=== PATIENT | female | born 1940 | race Caucasian/White ===

== ENCOUNTER 2017-05-23 11:05 | Inpatient (IN) | payer MEDICARE, OTHER ==
[~2017-05-23] VITALS: Ht 160 cm; Wt 108.0 kg
[2017-05-23 11:35] LABS: BASOPHILS % (AUTO) 0.3 % (0-1); EOSINOPHILS # (AUTO) 0.2 X10'3 (0-0.9); EOSINOPHILS % (AUTO) 2.8 % (0-6); HEMATOCRIT 46.5 % (35.0-45.0); HEMOGLOBIN 15.9 g/dl (12.0-16.0); LYMPHOCYTES # (AUTO) 1.1 X10'3 (1.1-4.8); LYMPHOCYTES % (AUTO) 15.9 % (21-51); MEAN CORPUSCULAR HEMOGLOBIN 29.9 PG (27.0-31.0); MEAN CORPUSCULAR HGB CONC 34.1 % (33.0-36.5); MEAN CORPUSCULAR VOLUME 87.6 FL (78-98); MEAN PLATELET VOLUME 9.4 FL (7.4-10.4); MONOCYTES # (AUTO) 0.7 X10'3 (0-0.9); MONOCYTES % (AUTO) 10.2 % (2-12); NEUTROPHILS # (AUTO) 5.1 X10'3 (1.8-7.7); NEUTROPHILS % (AUTO) 70.8 % (42-75); PLATELET COUNT 207 X10'3 (140-440); RED BLOOD COUNT 5.31 X10'6 (4.20-5.60); RED CELL DISTRIBUTION WIDTH 14.4 % (11.5-14.5); WHITE BLOOD COUNT 7.2 X10'3 (4.5-11.0)
[2017-05-23 11:46] LABS: PARTIAL THROMBOPLASTIN TIME 27 SECONDS (22-32); PROTHROMBIN TIME 10.6 SECONDS (9.0-12.0)
[2017-05-23 11:52] LABS: ALANINE AMINOTRANSFERASE 129 U/L (12-78); ALBUMIN 3.8 G/DL (3.4-5.0); ALKALINE PHOSPHATASE 109 IU/L (46-116); ANION GAP 12 (8-16); ASPARTATE AMINO TRANSFERASE 64 U/L (10-37); BILIRUBIN,TOTAL 0.6 MG/DL (0.1-1.0); BLOOD UREA NITROGEN 20 MG/DL (7-18); BUN/CREATININE RATIO 23.8 (6.6-38.0); CALCIUM 9.2 MG/DL (8.5-10.1); CHLORIDE 101 MMOL/L (99-107); CREATININE 0.84 MG/DL (0.40-0.90); GLUCOSE 122 MG/DL (70-104); POTASSIUM 4.4 MMOL/L (3.5-5.1); SODIUM 136 MMOL/L (135-145); TOTAL CARBON DIOXIDE 23.3 MMOL/L (24-32); TOTAL PROTEIN 7.7 G/DL (6.4-8.2); eGFR 66 ML/MIN
[2017-05-23] MEDS: dextrose 5%-1/2 normal saline 1,000 ML IV SCH ×2 (13:09→23:56)
[2017-05-23] MEDS ORDERED: potassium Cl 20 mEq SR tablet PO PRN ×2 (13:10)
[2017-05-23] MEDS ORDERED: morphine 4 MG/ML inj SYRINge IV PRN (13:10)
[2017-05-23] MEDS ORDERED: magnesium Cl slow-release 64mg tablet PO PRN (13:10)
[2017-05-23] MEDS ORDERED: metoprolol tartrate 1mg/ml inj IV PRN (13:10)
[2017-05-23] MEDS ORDERED: ondansetron/PF 4mg/2ml inj IV PRN (13:10)
[2017-05-23] MEDS ORDERED: diphenhydrAMINE 25mg capsule PO PRN (13:10)
[2017-05-23] MEDS ORDERED: HYDROcodone/acetaminophen 5mg/325mg tablet PO PRN (13:10)
[2017-05-23] MEDS ORDERED: nitroGLYCERIN 0.4mg SUBLingual tab SL PRN (13:10)
[2017-05-23] MEDS ORDERED: mag hydrox/Alum hydrox/simeth 30ml oral suspension PO PRN (13:10)
[2017-05-23] MEDS ORDERED: aminophylline 250mg/10ml inj. IV PRN (13:10)
[2017-05-23] MEDS ORDERED: acetaminophen 325mg tablet PO PRN ×2 (13:10)
[2017-05-23] MEDS ORDERED: potassium Cl 40MEQ/NS 500ml 500 ML IV PRN ×2 (13:10)
[2017-05-23] MEDS ORDERED: magnesium 4gm in 100ml NS 100 ML IV PRN (13:10)
[2017-05-23] MEDS ORDERED: aspirin 325mg tablet PO ONE (13:10)
[2017-05-23] MEDS ORDERED: regadenoson 0.4mg/5ml syringe IV PRN (13:10)
[2017-05-23] MEDS ORDERED: magnesium hydroxide 30ml (MOM) UD suspension PO PRN (13:10)
[2017-05-23] MEDS ORDERED: magnesium 2GM in 50ml NS 50 ML IV PRN (13:10)
[2017-05-23] MEDS: oxyCODONE/APAP 10/325mg tablet PO PRN ×2 (15:59→20:30)
[2017-05-23 17:05] VITALS: BP 137/66
[2017-05-23 19:00] VITALS: BP 117/78
[2017-05-23] MEDS: docusate sod 100mg capsule PO SCH (20:31)
[2017-05-23] MEDS ORDERED: temazepam 15mg capsule PO PRN (21:00)
[2017-05-23 23:00] VITALS: BP 132/70
[2017-05-24] VITALS (13 sets, daily range): BP systolic 118–142; BP diastolic 61–93
[2017-05-24] MEDS: oxyCODONE/APAP 10/325mg tablet PO PRN ×6 (00:32→21:42)
[2017-05-24 05:29] LABS: BASOPHILS % (AUTO) 0.6 % (0-1); EOSINOPHILS # (AUTO) 0.3 X10'3 (0-0.9); EOSINOPHILS % (AUTO) 5.2 % (0-6); HEMATOCRIT 40.9 % (35.0-45.0); LYMPHOCYTES # (AUTO) 1.3 X10'3 (1.1-4.8); MEAN CORPUSCULAR HEMOGLOBIN 30.3 PG (27.0-31.0); MEAN CORPUSCULAR HGB CONC 34.4 % (33.0-36.5); MEAN CORPUSCULAR VOLUME 88.2 FL (78-98); MEAN PLATELET VOLUME 9.7 FL (7.4-10.4); MONOCYTES # (AUTO) 0.8 X10'3 (0-0.9); MONOCYTES % (AUTO) 12.4 % (2-12); NEUTROPHILS # (AUTO) 4.1 X10'3 (1.8-7.7); NEUTROPHILS % (AUTO) 61.8 % (42-75); PLATELET COUNT 183 X10'3 (140-440); RED BLOOD COUNT 4.63 X10'6 (4.20-5.60); RED CELL DISTRIBUTION WIDTH 14.4 % (11.5-14.5); WHITE BLOOD COUNT 6.7 X10'3 (4.5-11.0)
[2017-05-24 05:53] LABS: ALANINE AMINOTRANSFERASE 97 U/L (12-78); ALBUMIN 3.1 G/DL (3.4-5.0); ALBUMIN/GLOBULIN RATIO 0.9 (1.1-1.5); ALKALINE PHOSPHATASE 91 IU/L (46-116); ANION GAP 10 (8-16); ASPARTATE AMINO TRANSFERASE 43 U/L (10-37); BILIRUBIN,TOTAL 0.5 MG/DL (0.1-1.0); BLOOD UREA NITROGEN 17 MG/DL (7-18); BUN/CREATININE RATIO 20.5 (6.6-38.0); CHLORIDE 102 MMOL/L (99-107); CREATININE 0.83 MG/DL (0.40-0.90); GLUCOSE 102 MG/DL (70-104); PHOSPHORUS 4.4 MG/DL (2.3-4.5); POTASSIUM 4.1 MMOL/L (3.5-5.1); SODIUM 137 MMOL/L (135-145); TOTAL CARBON DIOXIDE 25.4 MMOL/L (24-32); TOTAL PROTEIN 6.4 G/DL (6.4-8.2); eGFR 67 ML/MIN
[2017-05-24] MEDS: docusate sod 100mg capsule PO SCH ×2 (07:29→20:32)
[2017-05-24] MEDS: pantoprazole 40mg Tablet.DR PO SCH (07:30)
[2017-05-24] MEDS: enoxaparin 40mg/0.4ml syringe SUBCUT SCH (07:33)
[2017-05-24] MEDS ORDERED: enoxaparin 40mg/0.4ml syringe SQ SCH (08:00)
[2017-05-24] MEDS ORDERED: lisinopril 20mg tablet PO SCH (08:00)
[2017-05-24] MEDS ORDERED: K and/or MAG REPLACEMENT MC SCH (08:00)
[2017-05-24] MEDS: dextrose 5%-1/2 normal saline 1,000 ML IV SCH ×2 (09:09→17:44)
[2017-05-24] MEDS ORDERED: aminophylline inj. 0 ML IV ONE (09:56)
[2017-05-24] MEDS ORDERED: regadenoson 0.4mg/5ml syringe IV ONE (09:56)
[2017-05-24] MEDS ORDERED: AMLO5TAB PO (11:58)
[2017-05-24] MEDS ORDERED: LISI-600 PO (11:58)
[2017-05-24] MEDS ORDERED: OXYC-138 PO (12:05)
[2017-05-24] MEDS ORDERED: NAPR250T4 PO (12:06)
[2017-05-24] MEDS ORDERED: CYAN100097 PO (12:08)
[2017-05-24] MEDS ORDERED: MULT-933 PO (12:09)
[2017-05-24] MEDS ORDERED: FISH12002 PO (12:10)
[2017-05-24] MEDS ORDERED: LACT1CAP65 PO (12:10)
[2017-05-24] MEDS ORDERED: EPIN0.3P8 IM (12:11)
[2017-05-24] MEDS ORDERED: GABA600T2 PO (13:01)
[2017-05-24] MEDS ORDERED: APIX5TAB3 PO (13:04)
[2017-05-24] MEDS ORDERED: gabapentin 300mg capsule PO PRN (16:50)
[2017-05-24] MEDS ORDERED: oxyCODONE/APAP 10/325mg tablet PO PRN (16:50)
[2017-05-24] MEDS ORDERED: amLODIPine 5mg tablet PO PRN (16:50)
[2017-05-24] MEDS ORDERED: calcium carbonate 500mg chew tablet PO ONE (18:00)
[2017-05-24] MEDS ORDERED: ASPI-1071 PO (18:08)
[2017-05-24] MEDS ORDERED: PANT40TA4 PO (18:08)
[2017-05-24] MEDS: apixaban 5mg tablet PO SCH (20:32)
[2017-05-25] MEDS: oxyCODONE/APAP 10/325mg tablet PO PRN ×2 (01:43→07:04)
[2017-05-25] MEDS: dextrose 5%-1/2 normal saline 1,000 ML IV SCH (01:49)
[2017-05-25 02:00] VITALS: BP 131/83
[2017-05-25 05:35] LABS: BASOPHILS % (AUTO) 0.2 % (0-1); EOSINOPHILS # (AUTO) 0.3 X10'3 (0-0.9); EOSINOPHILS % (AUTO) 4.7 % (0-6); HEMATOCRIT 41.2 % (35.0-45.0); LYMPHOCYTES # (AUTO) 1.2 X10'3 (1.1-4.8); LYMPHOCYTES % (AUTO) 17.1 % (21-51); MEAN CORPUSCULAR HEMOGLOBIN 30.3 PG (27.0-31.0); MEAN CORPUSCULAR HGB CONC 34.1 % (33.0-36.5); MEAN PLATELET VOLUME 9.4 FL (7.4-10.4); MONOCYTES # (AUTO) 0.8 X10'3 (0-0.9); NEUTROPHILS # (AUTO) 4.7 X10'3 (1.8-7.7); PLATELET COUNT 187 X10'3 (140-440); RED BLOOD COUNT 4.63 X10'6 (4.20-5.60); RED CELL DISTRIBUTION WIDTH 14.4 % (11.5-14.5); WHITE BLOOD COUNT 7.1 X10'3 (4.5-11.0)
[2017-05-25 05:54] LABS: ALANINE AMINOTRANSFERASE 71 U/L (12-78); ALBUMIN/GLOBULIN RATIO 0.9 (1.1-1.5); ALKALINE PHOSPHATASE 89 IU/L (46-116); ANION GAP 6 (8-16); ASPARTATE AMINO TRANSFERASE 25 U/L (10-37); BILIRUBIN,TOTAL 0.4 MG/DL (0.1-1.0); BLOOD UREA NITROGEN 11 MG/DL (7-18); BUN/CREATININE RATIO 12.5 (6.6-38.0); CALCIUM 8.7 MG/DL (8.5-10.1); CHLORIDE 104 MMOL/L (99-107); CREATININE 0.88 MG/DL (0.40-0.90); GLUCOSE 108 MG/DL (70-104); MAGNESIUM 1.9 MG/DL (1.5-2.4); PHOSPHORUS 3.7 MG/DL (2.3-4.5); POTASSIUM 4.2 MMOL/L (3.5-5.1); SODIUM 138 MMOL/L (135-145); TOTAL CARBON DIOXIDE 27.6 MMOL/L (24-32); TOTAL PROTEIN 6.4 G/DL (6.4-8.2); eGFR 63 ML/MIN
[2017-05-25 06:00] VITALS: BP 145/87
[2017-05-25] MEDS: pantoprazole 40mg Tablet.DR PO SCH (07:02)
[2017-05-25] MEDS: docusate sod 100mg capsule PO SCH (08:00)
[2017-05-25] MEDS: enoxaparin 40mg/0.4ml syringe SUBCUT SCH (08:00)
[2017-05-25] MEDS ORDERED: cyanocobalamin 500mcg tablet PO SCH (08:00)
[2017-05-25] MEDS ORDERED: lactobacillus rhamnosus 10,000 MMU CELLS/CAPSULE PO SCH (08:00)
[2017-05-25] MEDS ORDERED: non-formulary drug (Fish Oil/Borage/Flax/Om3,6,9#1 (Omega 3-6-9 1,200 mg Softgel) 1 CAP) PO SCH (08:00)
[2017-05-25] MEDS ORDERED: lisinopril 20mg tablet PO SCH (08:00)
[2017-05-25] MEDS ORDERED: aspirin 81mg tablet.DR PO SCH (08:00)
[2017-05-25] MEDS ORDERED: multivitamins, therapeutics tablet PO SCH (08:00)
[2017-05-25] MEDS: apixaban 5mg tablet PO SCH (08:27)
[2017-05-25] MEDS ORDERED: calcium carbonate 500mg chew tablet PO SCH (08:30)
== END 2017-05-25 10:45 | disposition home or self-care (01) | DRG 392 ==
LOC: ER 11:05 → ED HOLD 13:32 → PCU 3S 17:12
PROVIDERS: ADMIT Internal Medicine; ATTEND Internal Medicine
PROC: 4A02XM4 Measurement of Cardiac Total Activity, External Approach (ICD-10-PCS; principal; 2017-05-24)
PROC: 3E033HZ Introduction of Radioactive Substance into Peripheral Vein, Percutaneous Approach (ICD-10-PCS; 2017-05-24)
DX: K21.9 Gastro-esophageal reflux disease without esophagitis (principal); I48.91 Unspecified atrial fibrillation; E66.01 Morbid (severe) obesity due to excess calories; Z68.41 Body mass index [BMI] 40.0-44.9, adult; M19.90 Unspecified osteoarthritis, unspecified site; I10 Essential (primary) hypertension; Z91.030 Bee allergy status; Z91.013 Allergy to seafood
CPT/HCPCS: 36415; 71045; 76775; 78452; 80053; 83735; 84100; 84484; 85025; 85610; 85730; 87070; 93005; 93017; 93306; 99285; A9500; J0280; J1650; J2270; J2405; J3420

== ENCOUNTER 2017-06-11 14:04 | Emergency (ER) | payer OTHER ==
[~2017-06-11] VITALS: Ht 160 cm; Wt 107.7 kg
[~2017-06-11 14:04] MED LIST: AMLO5TAB PO; APIX5TAB3 PO; ASPI-1071 PO; CYAN100097 PO; EPIN0.3P8 IM; FISH12002 PO; GABA600T2 PO; LACT1CAP65 PO; LISI-600 PO; MULT-933 PO; NAPR250T4 PO; OXYC-138 PO; PANT40TA4 PO
[2017-06-11 14:06] VITALS: BP 141/51
[2017-06-11] MEDS ORDERED: famotidine/PF 10 mg/ml inj IV ONE (15:05)
[2017-06-11] MEDS ORDERED: LIDOcaine Viscous 15ml cup PO ONE (15:05)
[2017-06-11] MEDS ORDERED: mag hydrox/Alum hydrox/simeth 30ml oral suspension PO ONE (15:05)
[2017-06-11] MEDS ORDERED: normal saline 1000ML IV soln IVB ONE (15:05)
[2017-06-11] MEDS ORDERED: morphine 4 MG/ML inj SYRINge IV ONE (15:05)
[2017-06-11 15:21] LABS: BASOPHILS % (AUTO) 0.3 % (0-1); EOSINOPHILS # (AUTO) 0.2 X10'3 (0-0.9); EOSINOPHILS % (AUTO) 2.2 % (0-6); HEMATOCRIT 45.6 % (35.0-45.0); HEMOGLOBIN 15.6 g/dl (12.0-16.0); LYMPHOCYTES # (AUTO) 1.2 X10'3 (1.1-4.8); LYMPHOCYTES % (AUTO) 15.3 % (21-51); MEAN CORPUSCULAR HGB CONC 34.1 % (33.0-36.5); MEAN PLATELET VOLUME 8.8 FL (7.4-10.4); MONOCYTES # (AUTO) 0.8 X10'3 (0-0.9); MONOCYTES % (AUTO) 9.6 % (2-12); NEUTROPHILS # (AUTO) 5.8 X10'3 (1.8-7.7); NEUTROPHILS % (AUTO) 72.6 % (42-75); PLATELET COUNT 231 X10'3 (140-440); RED BLOOD COUNT 5.18 X10'6 (4.20-5.60); RED CELL DISTRIBUTION WIDTH 14.3 % (11.5-14.5); WHITE BLOOD COUNT 7.9 X10'3 (4.5-11.0)
[2017-06-11 15:36] LABS: ALANINE AMINOTRANSFERASE 22 U/L (12-78); ALBUMIN 3.6 G/DL (3.4-5.0); ALKALINE PHOSPHATASE 79 IU/L (46-116); ANION GAP 8 (8-16); ASPARTATE AMINO TRANSFERASE 14 U/L (10-37); BILIRUBIN,TOTAL 0.5 MG/DL (0.1-1.0); BLOOD UREA NITROGEN 14 MG/DL (7-18); BUN/CREATININE RATIO 17.5 (6.6-38.0); CHLORIDE 100 MMOL/L (99-107); GLUCOSE 128 MG/DL (70-104); LIPASE 91 U/L (73-393); POTASSIUM 4.6 MMOL/L (3.5-5.1); SODIUM 136 MMOL/L (135-145); TOTAL CARBON DIOXIDE 27.6 MMOL/L (24-32); TOTAL PROTEIN 7.1 G/DL (6.4-8.2); eGFR 70 ML/MIN
[2017-06-11] MEDS ORDERED: SUCR1ORA2 PO (15:56)
[2017-06-11] MEDS ORDERED: oxyCODONE/APAP 5-325mg tablet PO ONE (16:00)
[2017-06-11] MEDS ORDERED: famotidine 20mg tablet PO ONE (16:00)
== END 2017-06-11 16:51 | disposition home or self-care (01) ==
LOC: ER 14:05
DX: R10.13 Epigastric pain (principal); I48.91 Unspecified atrial fibrillation; I10 Essential (primary) hypertension; Z87.891 Personal history of nicotine dependence; Z79.82 Long term (current) use of aspirin; Z91.013 Allergy to seafood
CPT/HCPCS: 36415; 71045; 80053; 83690; 84484; 85025; 93005; 99285; J3490; J7030

== ENCOUNTER 2017-07-31 08:45 | Day surgery (SDC) | payer OTHER ==
[~2017-07-31] VITALS: Ht 160 cm; Wt 106.8 kg
[~2017-07-31 08:45] MED LIST changes: +SUCR1ORA2 PO
[2017-07-31 09:05] VITALS: BP 131/81
[2017-07-31] MEDS ORDERED: MIDAZolam 5mg/5ml vial ONE (09:23)
[2017-07-31] MEDS ORDERED: fentaNYL/PF 50MCG/1 ML 2ML syringe ONE (09:23)
[2017-07-31] MEDS ORDERED: ENOX40SY7 SQ (09:24)
[2017-07-31] MEDS ORDERED: DABI150C PO (09:24)
[2017-07-31 10:00] VITALS: BP 103/63
[2017-07-31 10:10] VITALS: BP 113/77
[2017-07-31 10:20] VITALS: BP 128/73
== END 2017-07-31 11:00 | disposition home or self-care (01) ==
LOC: GI LAB 08:45
PROVIDERS: ATTEND Internal Medicine Gastroenterology
DX: K29.50 Unspecified chronic gastritis without bleeding (principal); B96.81 Helicobacter pylori [H. pylori] as the cause of diseases classified elsewhere; I10 Essential (primary) hypertension; I48.91 Unspecified atrial fibrillation; E78.5 Hyperlipidemia, unspecified; M19.90 Unspecified osteoarthritis, unspecified site; M81.0 Age-related osteoporosis without current pathological fracture; E66.9 Obesity, unspecified; Z86.73 Personal history of transient ischemic attack (TIA), and cerebral infarction without residual deficits; Z79.82 Long term (current) use of aspirin; Z91.013 Allergy to seafood; Z91.030 Bee allergy status; Z79.891 Long term (current) use of opiate analgesic; Z90.710 Acquired absence of both cervix and uterus; Z87.891 Personal history of nicotine dependence; Z68.41 Body mass index [BMI] 40.0-44.9, adult; Z79.899 Other long term (current) drug therapy; Z98.890 Other specified postprocedural states
CPT/HCPCS: 43239; G0500; J2250; J3010; J7030; A4620

== ENCOUNTER 2018-03-05 16:58 | Emergency (ER) | payer OTHER ==
[~2018-03-05] VITALS: Ht 162.6 cm; Wt 125.0 kg
[~2018-03-05 16:58] MED LIST changes: -APIX5TAB3 PO; +DABI150C PO; +ENOX40SY7 SQ; +GABA600T13 PO; -GABA600T2 PO; -NAPR250T4 PO
[2018-03-05] MEDS ORDERED: methylPREDNISolone sod succ 125mg/2ml vial IV ONE (17:25)
[2018-03-05] MEDS ORDERED: normal saline 1000ML IV soln IVB ONE (17:25)
[2018-03-05] MEDS ORDERED: albuterol 2.5 MG/3 ML nebule NEB ONE (17:25)
[2018-03-05] MEDS ORDERED: ipratropium/albuterol 3ml nebule NEB ONE (17:25)
[2018-03-05 18:19] VITALS: BP 164/64
[2018-03-05 18:22] LABS: BASOPHILS % (AUTO) 0.2 % (0-1); EOSINOPHILS # (AUTO) 0.2 X10'3 (0-0.9); EOSINOPHILS % (AUTO) 2.1 % (0-6); HEMATOCRIT 43.4 % (35.0-45.0); HEMOGLOBIN 13.8 g/dl (12.0-16.0); LYMPHOCYTES % (AUTO) 25.8 % (21-51); MEAN CORPUSCULAR HEMOGLOBIN 28.5 PG (27.0-31.0); MEAN CORPUSCULAR HGB CONC 31.8 % (33.0-36.5); MEAN CORPUSCULAR VOLUME 89.5 FL (78-98); MEAN PLATELET VOLUME 9.4 FL (7.4-10.4); MONOCYTES % (AUTO) 13.4 % (2-12); NEUTROPHILS # (AUTO) 4.4 X10'3 (1.8-7.7); NEUTROPHILS % (AUTO) 58.5 % (42-75); PLATELET COUNT 197 X10'3 (140-440); RED BLOOD COUNT 4.84 X10'6 (4.20-5.60); RED CELL DISTRIBUTION WIDTH 13.6 % (11.5-14.5); WHITE BLOOD COUNT 7.6 X10'3 (4.5-11.0)
[2018-03-05 18:38] LABS: ALANINE AMINOTRANSFERASE 22 U/L (12-78); ALBUMIN 3.3 G/DL (3.4-5.0); ALBUMIN/GLOBULIN RATIO 0.9 (1.1-1.5); ALKALINE PHOSPHATASE 95 IU/L (46-116); ANION GAP 11 (8-16); ASPARTATE AMINO TRANSFERASE 18 U/L (10-37); BILIRUBIN,TOTAL 0.6 MG/DL (0.1-1.0); BLOOD UREA NITROGEN 21 MG/DL (7-18); BUN/CREATININE RATIO 24.4 (6.6-38.0); CALCIUM 8.5 MG/DL (8.5-10.1); CHLORIDE 104 MMOL/L (99-107); CREATININE 0.86 MG/DL (0.40-0.90); GLUCOSE 106 MG/DL (70-104); POTASSIUM 3.8 MMOL/L (3.5-5.1); SODIUM 140 MMOL/L (135-145); TOTAL PROTEIN 6.8 G/DL (6.4-8.2); eGFR 64 ML/MIN
[2018-03-05 18:47] LABS: INR 1.1 INR; PARTIAL THROMBOPLASTIN TIME 25 SECONDS (22-32); PROTHROMBIN TIME 10.9 SECONDS (9.0-12.0)
[2018-03-05 19:51] LABS: D-DIMER 0.48 MG/L FEU (0-0.50)
[2018-03-05] MEDS ORDERED: ALBU18HF2 INH (20:17)
[2018-03-05] MEDS ORDERED: PRED20TA PO (20:17)
[2018-03-05] MEDS ORDERED: AZIT250T PO (20:17)
== END 2018-03-05 20:44 | disposition home or self-care (01) ==
LOC: ER 16:59
DX: J20.9 Acute bronchitis, unspecified (principal); I48.91 Unspecified atrial fibrillation; E78.00 Pure hypercholesterolemia, unspecified; I10 Essential (primary) hypertension; Z86.73 Personal history of transient ischemic attack (TIA), and cerebral infarction without residual deficits; Z95.0 Presence of cardiac pacemaker; Z98.890 Other specified postprocedural states; Z91.013 Allergy to seafood; Z79.899 Other long term (current) drug therapy; Z79.82 Long term (current) use of aspirin
CPT/HCPCS: 36415; 71045; 80053; 83880; 84484; 85025; 85379; 85610; 85730; 93005; 94640; 94760; 96374; 99284; J2930; J7030

== ENCOUNTER 2021-01-04 11:03 | Emergency (ER) | payer OTHER ==
[~2021-01-04] VITALS: Ht 160 cm; Wt 110.7 kg
[~2021-01-04 11:03] MED LIST changes: +ALBU18HF2 INH; +AZIT250T PO; -LISI-600 PO; +LISI20TA28 PO; -PANT40TA4 PO; +PANT40TA54 PO
[2021-01-04 12:08] LABS: CLARITY,URINE CLEAR (Clear); COLOR,URINE YELLOW (Yellow); GLUCOSE, URINE NEGATIVE (Neg); KETONES,URINE NEGATIVE (Neg); NITRITES, URINE NEGATIVE (Neg); OCCULT BLOOD,URINE NEGATIVE (Neg); PROTEIN,URINE NEGATIVE (Neg); UA COLLECTION TYPE CLN CATCH MIDSTREAM; UROBILINOGEN,URINE 0.2 E.U/dL (0.2-1.0)
[2021-01-04 12:09] LABS: LEUKOCYTE ESTERASE ,URINE TRACE (Neg)
[2021-01-04 12:19] LABS: BACTERIA,URINE 1+ /HPF (Neg); RBC,URINE 0-2 /HPF (0-2); WBC,URINE 20-30 /HPF (0-4)
[2021-01-04 12:20] LABS: SQUAMOUS EPITHELIAL CELL,UR FEW /LPF (FEW); WBC CLUMPS,URINE MODERATE /HPF (NEGATIVE)
[2021-01-04 12:22] LABS: BASOPHILS % (AUTO) 0.5 % (0-1); EOSINOPHILS # (AUTO) 0.1 X10'3 (0-0.9); EOSINOPHILS % (AUTO) 2.3 % (0-6); HEMATOCRIT 47.8 % (35.0-45.0); HEMOGLOBIN 15.7 g/dl (12.0-16.0); LYMPHOCYTES # (AUTO) 1.1 X10'3 (1.1-4.8); LYMPHOCYTES % (AUTO) 17.5 % (21-51); MEAN CORPUSCULAR HEMOGLOBIN 30.3 PG (27.0-31.0); MEAN CORPUSCULAR HGB CONC 32.8 g/dL (33.0-36.5); MEAN CORPUSCULAR VOLUME 92.4 FL (78-98); MEAN PLATELET VOLUME 9.8 FL (7.4-10.4); MONOCYTES # (AUTO) 0.8 X10'3 (0-0.9); MONOCYTES % (AUTO) 12.1 % (2-12); NEUTROPHILS # (AUTO) 4.4 X10'3 (1.8-7.7); NEUTROPHILS % (AUTO) 67.6 % (42-75); PLATELET COUNT 178 X10'3 (140-440); RED BLOOD COUNT 5.17 X10'6 (4.20-5.60); RED CELL DISTRIBUTION WIDTH 15.3 % (11.5-14.5); WHITE BLOOD COUNT 6.4 X10'3 (4.5-11.0)
[2021-01-04 12:31] LABS: ALANINE AMINOTRANSFERASE 45 U/L (12-78); ALBUMIN 3.7 G/DL (3.4-5.0); ALKALINE PHOSPHATASE 76 IU/L (46-116); ANION GAP 9 (8-16); ASPARTATE AMINO TRANSFERASE 23 U/L (10-37); BILIRUBIN,TOTAL 0.5 MG/DL (0.1-1.0); BLOOD UREA NITROGEN 21 MG/DL (7-18); CALCIUM 8.7 MG/DL (8.5-10.1); CHLORIDE 106 MMOL/L (99-107); GLUCOSE 83 MG/DL (70-104); MAGNESIUM 2.7 MG/DL (1.5-2.4); PHOSPHORUS 2.8 MG/DL (2.3-4.5); POTASSIUM 4.3 MMOL/L (3.5-5.1); SODIUM 143 MMOL/L (135-145); TOTAL CARBON DIOXIDE 28.3 MMOL/L (24-32); TOTAL PROTEIN 7.4 G/DL (6.4-8.2); eGFR 53 ML/MIN
[2021-01-04 15:01] VITALS: BP 150/99
== END 2021-01-04 15:18 | disposition home or self-care (01) ==
LOC: ER 11:03
DX: M54.50 Low back pain, unspecified (principal); I48.91 Unspecified atrial fibrillation; E78.00 Pure hypercholesterolemia, unspecified; I10 Essential (primary) hypertension; Z86.73 Personal history of transient ischemic attack (TIA), and cerebral infarction without residual deficits; Z72.89 Other problems related to lifestyle; Z87.440 Personal history of urinary (tract) infections; Z79.899 Other long term (current) drug therapy; Z79.82 Long term (current) use of aspirin; Z79.2 Long term (current) use of antibiotics
CPT/HCPCS: 36415; 80053; 81001; 83735; 84100; 85025; 87088; 93005; 99284